=== PATIENT | male | born 1960 | race Caucasian/White ===

== ENCOUNTER 2016-08-23 23:50 | Inpatient (IN) | payer OTHER ==
--- NOTE | ~2016-08-23 | OP ---
Record Of Operation [facility] [address] [place]. [address] NAME: NARA POLANCO : 60 STATUS : ADM Stephen PAT#: [id number] AGE: 56 ADM/REG DATE : 08/23/16 MR#: [id number] REPORT SERV DATE: 08/24/16 DICTATED BY: ROLAN DUENAS DATE: 08/24/16 REPORT STATUS : Draft TRANSCRIBED BY: MODL DATE: 08/24/16 DATE OF PROCEDURE: 08/24/2016 PROCEDURE: EGD and control of bleeding. INDICATION: History of melena. SEDATION: Diprivan. FINDINGS: Olympus video endoscope was passed into the esophagus, which was normal. There are no varices. There was a small hiatal hernia in the gastric antrum. There were linear ulcerations one with oozing bright red blood. They were in the greater curvature in the mid antrum. Pylorus and duodenum were normal. The area was injected with epinephrine, total 4 mL. IMPRESSION: Linear ulcers on the greater curve of the stomach in the body, in the gastric antrum towards the body with endoscopic control. MG/MAN Rolan Duenas M.D. / [id number] CC: Jennifer Draper M.D.
--- NOTE | ~2016-08-23 | IDS ---
Interim Discharge Summary [facility] [address] [address] NAME: NARA RAYMUNDO : 60 STATUS : ADM Stephen PAT#: [id number] AGE: 56 ADM/REG DATE : 08/23/16 MR#: [id number] REPORT SERV DATE: 08/27/16 DICTATED BY: ROBIN SINGLETON DATE: 08/27/16 REPORT STATUS : Draft TRANSCRIBED BY: MODL DATE: 08/27/16 ADMISSION DATE: 08/23/2016 DISCHARGE DATE: DIAGNOSES: On this patient so far is, 1. Ongoing severe and acute lower gastrointestinal bleed-the patient has received 4 units of PRBC transfusion so far, and his hemoglobin and hematocrit continues to stay in the 6s and 7s range. The patient had a colonoscopy that is showing blood in the entire colon. 2. History of severe diverticulosis. 3. History of partial colon resection for diverticulitis/diverticulosis by Dr. Downs in 2013. BRIEF HOSPITAL COURSE: Mr. Raymundo is a very pleasant 56-year-old male, who was admitted with the diagnosis as outlined in history and physical exam dictated by Dr. Tran. Essentially, this is a patient who has had sigmoid colectomy by Dr. Downs for diverticulitis and this was in 2013 and he came in because of acute onset of bloody stools. He also had cough and subjective chills and fevers and he was diagnosed with influenza B infection. However, the patient is not infectious right now as his fever has resolved, cough has resolved, and he has received Tamiflu for this. When he came as his stool occult blood was positive and his H and H dropped, GI was consulted. The patient was given symptomatic and supportive care and transfused with blood transfusion. Dr. Rowe saw the patient and performed an endoscopy on him. The patient underwent an upper GI endoscopy on 08/24/2016 and the upper GI endoscopy showed normal esophagus, nonobstructing gastric ulcers, marginally oozing blood probably secondary to recent ibuprofen use that the patient had overused when he had the flu and fever. There was no evidence of perforation and this was injected with epinephrine. Normal duodenum was found on EGD. After this, the patient was transferred to [address] [place] [address] after being stabilized. He was doing well for 24 hours, but within that time he developed GI bleeding again. At this time, it was dark red blood which was giancarlo blood per rectum again. The patient also became dizzy and orthostatic. Hence his discharge was held. Dr. Rowe was reconsulted. The patient underwent a colonoscopy that showed blood in the entire colon. With the given history of diverticulitis/diverticulosis, we are suspecting acute and severe diverticular bleed again. Now, the patient has gone for special procedures in interventional Radiology by Dr. Barrera to locate the source of bleeding and stop if possible in Interventional Radiology by embolization, but if this does not work Dr. Downs has been consulted too. Dr. Downs feels that it is appropriate to transfer the patient to IMCU/MICU based on bed availability right now. Hence, we are transferring this patient to MICU or CCU as there are no IMCU beds for now. The patient will need to be watched closely despite several units of blood transfusion. His hemoglobin and hematocrit are staying low and he is continuing to have colonic bleed. Currently, he has been ordered 2 units of blood and his most recent H and H that I have is hemoglobin of 6.1 and hematocrit of 18.1. I have this patient with H and H every 8 hours and this could be changed to every [address] Rowe continues to follow this patient and so is Dr. Downs the surgeon. Please call me if you have any questions. I submit this as my interim discharge summary. Interim Discharge Summary [address] [address] NAME: NARA RAYMUNDO : 60 STATUS : ADM Stephen PAT#: [id number] AGE: 56 ADM/REG DATE : 08/23/16 MR#: [id number] REPORT SERV DATE: 08/27/16 DICTATED BY: ROBIN SINGLETON DATE: 08/27/16 REPORT STATUS : Draft TRANSCRIBED BY: MODFlako DATE: 08/27/16 STANTON/MAN Robin Singleton M.D. / [id number] CC: Robin Singleton M.D.
--- NOTE | ~2016-08-23 | EGD ---
EGD REPORT [facility] [address] [address] NAME: NARA RAYMUNDO : 60 STATUS : ADM Stephen PAT#: [id number] AGE: 56 ADM/REG DATE : 08/23/16 MR#: [id number] REPORT SERV DATE: 08/24/16 DICTATED BY: ROLAN DUENAS DATE: 08/24/16 REPORT STATUS : Draft TRANSCRIBED BY: [employer] DATE: 08/24/16 Endoscopy Center Patient Name: Nara Raymundo Date of : 1960 Attending MD: ROLAN DUENAS MD Procedure Date No Time: 08/24/2016 Procedure: Upper GI endoscopy Indications: Melena Referring MD: GUSTAVO KHAN Medicines: Propofol per Anesthesia Procedure: Pre-Anesthesia Assessment: - ASA Grade Assessment: III - A patient with severe systemic disease. After obtaining informed consent, the endoscope was passed under direct vision. Throughout the procedure, the patient's blood pressure, pulse, and oxygen saturations were monitored continuously. The GIF [id number] was introduced through the mouth, and advanced to the third part of duodenum. The upper GI endoscopy was accomplished without difficulty. The patient tolerated the procedure well. Findings: The examined esophagus was normal. Two non-obstructing oozing linear gastric ulcers of mild severity were found on the greater curvature of the gastric antrum. There is no evidence of perforation. Area was successfully injected with 4 mL of a 1:10,000 solution of epinephrine for hemostasis. The examined duodenum was normal. Impression: - Normal esophagus. - Non-obstructing gastric ulcers marginally oozing blood. NSAID induced etiology. There is no evidence of perforation. Injected. - Normal examined duodenum. Recommendation: - see dictated note for further details Procedure Code(s): --- Professional --- 61754, Esophagogastroduodenoscopy, flexible, transoral; with control of bleeding, any method Diagnosis Code(s): --- Professional --- K25.4, Chronic or unspecified gastric ulcer with hemorrhage T39.395S, Adverse effect of other nonsteroidal EGD REPORT [place] [address] [place]. [address] NAME: NARA RAYMUNDO : 60 STATUS : ADM Stephen PAT#: [id number] AGE: 56 ADM/REG DATE : 08/23/16 MR#: [id number] REPORT SERV DATE: 08/24/16 DICTATED BY: ROLAN DUENAS. DATE: 08/24/16 REPORT STATUS : Draft TRANSCRIBED BY: [employer] DATE: 08/24/16 anti-inflammatory drugs [NSAID], sequela K92.1, Melena CPT copyright 2013 [employer]. All rights reserved. The codes documented in this report are preliminary and upon overhead crane technician review may be revised to meet current compliance requirements. Rolan Duenas MD ROLAN DUENAS MD 08/24/2016 3:18 PM This report has been signed electronically. Number of Addenda: 0 Note Initiated On: 08/24/2016 1:32 PM Scope Withdrawal Time 0 hours 0 minutes 0 seconds
--- NOTE | ~2016-08-23 | DS ---
Discharge Summary [facility] [address] [facility] [place]. [address] NAME: NARA POLANCO : 60 STATUS : DIS IN PAT#: [id number] AGE: 56 ADM/REG DATE : 08/23/16 MR#: [id number] REPORT SERV DATE: 08/31/16 DICTATED BY: ROBIN SINGLETON DATE: 08/31/16 REPORT STATUS : Draft TRANSCRIBED BY: MODL DATE: 08/31/16 ADMISSION DATE: 08/23/2016 DISCHARGE DATE: 08/31/2016 CONDITION ON DISCHARGE: Stable. DISPOSITION: Discharged to home. DIAGNOSES ON DISCHARGE: 1. Acute gastrointestinal bleed, both upper gastrointestinal bleed and lower gastrointestinal bleed but lower gastrointestinal bleed was more significant. The upper gastrointestinal bleed stopped after the patient had an upper endoscopy, and the patient was given an injection of the ulcer that was found in the duodenal area. 2. The patient however developed severe bleeding in the colon from diverticulosis. The patient underwent colonoscopy, and colonoscopy showed blood in the entire colon. After that, the patient had to undergo an angiography two times before the bleeding site could be located and then finally the bleeding stopped after the patient got a coil put in one of the blood vessels, which was a branch of the inferior mesenteric artery. Hence, after the coil was put in the feeding vessel, his bleeding finally stopped. 3. History of severe diverticulosis. 4. History of partial colon resection for diverticulitis/diverticulosis [address] Downs. At this time, consults obtained include consult by Dr. Downs who was waiting to perform surgery if his bleeding did not stop, but luckily it stopped after the patient underwent angiography. CONSULT: GI consult. BRIEF HOSPITAL COURSE: For interim discharge summary, please refer my discharge summary dictated on 08/27/2016. The patient was transferred back from the ICU after he was watched for a day on 08/29/2016m and we watched him until today 08/31/2016 to make sure that he had no more episodes of blood in stools, and he did not. He has had several bowel movements like two to three bowel movements after that with no blood in the stool anymore. Hence, he is being discharged home once his hemoglobin and hematocrit has stabilized. LABORATORY DATA: I have the following labs on this patient upon discharge. Most recent CBC shows a WBC count of 7, hemoglobin 8.9, hematocrit 27.1, and platelet count of 149. His electrolyte profile show normal electrolytes and normal BUN and creatinine. DISCHARGE MEDICATION: The patient is being sent home with the following medications and these include MiraLAX one powder packet once a day as directed, Protonix 40 mg p.o. b.i.d., sucralfate or Carafate 1 g p.o. b.i.d., and ferrous sulfate 300 mg p.o. b.i.d. The patient is advised to follow up with his GI within the next three to four weeks and his primary care physician within the next one to two weeks. I have spent about 35 minutes in coordinating discharge care of this patient including face- Discharge Summary [address] [address] NAME: NARA POLANCO : 60 STATUS : DIS IN PAT#: [id number] AGE: 56 ADM/REG DATE : 08/23/16 MR#: [id number] REPORT SERV DATE: 08/31/16 DICTATED BY: ROBIN SINGLETON DATE: 08/31/16 REPORT STATUS : Draft TRANSCRIBED BY: MAN DATE: 08/31/16 to-face encounter. STANTON/MAN Robin Singleton M.D. / [id number] CC: Jennifer Andino M.D.
--- NOTE | ~2016-08-23 | CN ---
Consultation Report [facility] [address] [place]. [address] NAME: NARA POLANCO : 60 STATUS : ADM Stephen PAT#: [id number] AGE: 56 ADM/REG DATE : 08/23/16 MR#: [id number] REPORT SERV DATE: 08/24/16 DICTATED BY: ROLAN DUENAS DATE: 08/24/16 REPORT STATUS : Draft TRANSCRIBED BY: MODL DATE: 08/24/16 DATE OF CONSULTATION: 08/24/2016 HISTORY OF PRESENT ILLNESS: This patient had influenza B. He began taking ibuprofen a few days ago. He began having melenic stools, felt weak. Hemoglobin was 11.8, it has fallen to 9.7, he has had no melena here in the hospital. He denied any nausea or vomiting. He was given hydration. PAST MEDICAL HISTORY: History of diverticulitis, cholelithiasis, morbid obesity, sigmoid colectomy. MEDICATIONS: Carvedilol. PHYSICAL EXAMINATION: GENERAL: Morbidly obese. VITAL SIGNS: Pulse 100, blood pressure 130/80, seen in GI lab. CHEST: Clear. CARDIAC: Normal. ABDOMEN: Soft, nontender. IMPRESSION: Upper gastrointestinal bleed, possibly. PLAN: EGD. MG/MODL Rolan Duenas M.D. / [id number] CC: Jennifer Draper M.D.
--- NOTE | ~2016-08-23 | EGD ---
EGD REPORT [facility] [address] [address] NAME: NARA RAYMUNDO : 60 STATUS : ADM Stephen PAT#: [id number] AGE: 56 ADM/REG DATE : 08/23/16 MR#: [id number] REPORT SERV DATE: 08/27/16 DICTATED BY: ROLAN DUENAS DATE: 08/27/16 REPORT STATUS : Draft [facility]ANS[facility]: [facility] DATE: 08/27/16 Endoscopy Center Patient Name: Nara Raymunod Date of : 1960 Attending MD: ROLAN DUENAS MD Procedure Date No Time: 08/27/2016 Procedure: Colonoscopy Indications: Hematochezia Medicines: Propofol per Anesthesia Complications: No immediate complications. Procedure: Pre-Anesthesia Assessment: - ASA Grade Assessment: III - A patient with severe systemic disease. After I obtained informed consent, the scope was passed under direct vision. Throughout the procedure, the patient's blood pressure, pulse, and oxygen saturations were monitored continuously. The CF [id number] was introduced through the anus and advanced to 10 cm into the ileum. The colonoscopy was performed without difficulty. The patient tolerated the procedure well. The quality of the bowel preparation was adequate. Findings: There is no endoscopic evidence of bleeding in the terminal ileum. There was evidence of a prior end-to-side colo-colonic anastomosis in the sigmoid colon. This was patent. This was characterized by healthy appearing mucosa. Multiple medium-mouthed diverticula were found in the entire colon. Red blood was found in the entire colon. Blood throughout entire colon with most of it just above anastamoses in sigmoid. could not totally clear with irrigation Impression: - Patent end-to-side colo-colonic anastomosis. - Diverticulosis in the entire examined colon. - Blood in the entire examined colon. Recommendation: - Return patient to [facility] for ongoing care. Procedure Code(s): --- Professional --- 09906, Colonoscopy, flexible, proximal to splenic flexure; diagnostic, with or without collection of specimen(s) by brushing or washing, with or without colon decompression (separate procedure) Diagnosis Code(s): --- Professional --- EGD REPORT [facility] [address] [address] NAME: NARA RAYMUNDO : 60 STATUS : ADM Stephen PAT#: [id number] AGE: 56 ADM/REG DATE : 08/23/16 MR#: [id number] REPORT SERV DATE: 08/27/16 DICTATED BY: ROLAN DUENAS. DATE: 08/27/16 REPORT STATUS : Draft TRANSCRIBED BY: [employer] DATE: 08/27/16 Z98.0, Intestinal bypass and anastomosis status K57.30, Diverticulosis of large intestine without perforation or abscess without bleeding K92.2, Gastrointestinal hemorrhage, unspecified K92.1, Melena CPT copyright 2013 [employer] [place] [employer]. All rights reserved. The codes documented in this report are preliminary and upon juice mixer review may be revised to meet current compliance requirements. Attending Participation: I personally performed the entire procedure. Rolan Duenas MD ROLAN DUENAS MD 08/27/2016 7:42 AM This report has been signed electronically. Number of Addenda: 0 Note Initiated On: 08/27/2016 7:15 AM Scope Withdrawal Time 0 hours 14 minutes 7 seconds [address] [address]
--- NOTE | ~2016-08-23 | HP ---
History And Physical [place] [address] [facility] [place]. [address] NAME: NARA RAYMUNDO : 60 STATUS : ADM Stephen PAT#: [id number] AGE: 56 ADM/REG DATE : 08/23/16 MR#: [id number] REPORT SERV DATE: 08/24/16 DICTATED BY: AMISHA LAWLER DATE: 08/24/16 REPORT STATUS : Draft TRANSCRIBED BY: MODL DATE: 08/24/16 DATE OF ADMISSION: 08/23/2016 POINT OF ENTRY: [facility] Emergency Department. PRIMARY CORRUGATOR HELPER: Rolan Rowe M.D. CHIEF COMPLAINT: Bloody stools. HISTORY OF PRESENT ILLNESS: Mr. Raymundo is a 56-year-old gentleman with a history of hypertension as well as a prior history of diverticulitis requiring sigmoid colectomy, who presents to the emergency department today with acute onset of bloody stools. The patient states that beginning on he started to develop a cough as well as some subjective fevers and chills. He was seen at an Urgent Care Center today and diagnosed with influenza B infection. He was given a dose of intramuscular steroids and discharged to home. The patient states that he was not discharged on Tamiflu as his symptoms have been going on for 3+ days now. Upon arrival home he started to feel nauseated as if he is going to have diarrhea. He went to use the restroom and had a large volume bloody bowel movement and when asked to describe it was black as well as tarry consistent with melena. The patient continued to have additional bloody bowel movements at this time becoming more hematochezia in nature with appearance of some dark and bright red blood intermixed with stool. The patient started to feel weak as well as a little dizzy and presented to the emergency department. Initial evaluation in the emergency department notable for a blood pressure that was 108/57, heart rate of 121 this improved with administration of 1 L of normal saline. His occult stool was positive. His hemoglobin is 11.8. Lactic acid was mildly elevated at 2.5. CT scan of the abdomen and pelvis was unremarkable. He was subsequently admitted to the Hospitalist Service for further evaluation and management. Comprehensive review of systems otherwise negative, unless listed in history of present illness. The patient denies any aspirin or blood thinners. Denies any recent alcohol intake. Does have intermittent history of gastroesophageal reflux disease, but denies anything recent. He had been taking some ibuprofen for the past three days for his flu-like symptoms, he estimates about 400 mg three times daily for the past two to three days. The patient follows with Dr. Rowe, but has not seen him since 2009. He has not had any upper or lower endoscopy since then either. PREVIOUS MEDICAL HISTORY: 1. Hypertension. 2. History of diverticulitis, status post sigmoid colectomy. 3. Symptomatic cholelithiasis status post cholecystectomy. History And Physical [address] [address] NAME: NARA RAYMUNDO : 60 STATUS : ADM Stephen PAT#: [id number] AGE: 56 ADM/REG DATE : 08/23/16 MR#: [id number] REPORT SERV DATE: 08/24/16 DICTATED BY: AMISHA LAWLER DATE: 08/24/16 REPORT STATUS : Draft TRANSCRIBED BY: MAN DATE: 08/24/16 4. History of small-bowel obstruction. SURGICAL HISTORY: 1. Cholecystectomy. 2. Periumbilical hernia repair. 3. Sigmoid colectomy. ALLERGIES: TO FLAGYL. HOME MEDICATIONS: 1. Carvedilol 6.25 mg b.i.d. 2. Losartan/hydrochlorothiazide 100/12.5 mg one tablet daily. 3. Aldactone 25 mg daily. SOCIAL HISTORY: He denies any tobacco or illicits. Occasional alcohol intake. He works at the [employer] for [employer]. FAMILY MEDICAL HISTORY: Mother with hypertension and diabetes. Father also with hypertension and diabetes. He has some grandparents with history of coronary artery disease. LABS AND IMAGIN. White count is 9.2, hemoglobin is 11.8, hematocrit is 35.1, and platelet count is 234. INR is 1.2. 2. Sodium is 140, potassium is 4.6, chloride 108, carbon dioxide 23, BUN 36, creatinine 1.03, glucose is 240, calcium is 8.0, protein is 6.2, albumin is 2.9, bilirubin is 0.2, ALT is 38, AST 22, alkaline phosphatase is 99. 3. Lactic acid 2.5. 4. CT of the abdomen and pelvis shows no acute findings. PHYSICAL EXAMINATION: VITAL SIGNS: Temperature is 98.9 degrees Fahrenheit, pulse initially was 121, respirations 20, saturating 95% on room air, and blood pressure is 108/57. On recheck, blood pressure is now 122/55, heart rate of 91. GENERAL: The patient is awake and alert, in no acute distress. Resting comfortably. He is a well-developed, well-nourished, morbidly obese appearing male. HEENT: Atraumatic and normocephalic. Moist mucous membranes. Pupils equal, round, reactive to light and accommodation. Extraocular eye movements are intact. No scleral icterus. NECK: No jugular venous distention. No carotid bruits. CARDIAC: Regular rate and rhythm. No murmurs, rubs, or gallops. Normal S1, S2. LUNGS: Clear to auscultation bilaterally. No wheezes, rhonchi, or crackles. ABDOMEN: Obese soft, nontender, and nondistended. Good bowel sounds. No rebound, guarding, or rigidity. EXTREMITIES: Warm and perfused. No cyanosis, clubbing, or edema. SKIN: Warm and dry. PSYCH: Affect appropriate. NEURO: Alert and oriented x3. Cranial nerves 2 through 12 grossly intact. Speech is History And Physical [address] [address] NAME: NARA RAYMUNDO : 60 STATUS : ADM Stephen PAT#: [id number] AGE: 56 ADM/REG DATE : 08/23/16 MR#: [id number] REPORT SERV DATE: 08/24/16 DICTATED BY: AMISHA LAWLER DATE: 08/24/16 REPORT STATUS : Draft TRANSCRIBED BY: MODFlako DATE: 08/24/16 normal. Gait is not assessed. ASSESSMENT AND PLAN: Mr. Raymundo is a 56-year-old gentleman with a recent diagnosis of influenza B, who had been taking some ibuprofen for his symptoms and now presents to the emergency department with a one-day history of gastrointestinal bleeding. PROBLEM LIST: 1. GI bleed. 2. Acute blood loss anemia. 3. Elevated lactic acid level. 4. Influenza B positivity. 5. Shortness of breath. 6. Borderline low blood pressures. 7. Hyperglycemia. PLAN: 1. GI bleed. The patient describes both melena as well as hematochezia, so source is likely upper, and the patient does have a history of diverticulosis and diverticulitis. The patient currently is hemodynamically stable. We will check q.6 hours hemoglobin and hematocrits as well as consult Dr. Rowe for assistance in the morning. Make the patient nothing by mouth in the event he may need upper endoscopy evaluation. He has received 80 mg of IV Protonix here in the emergency department, we will continue a Protonix drip. 2. Acute blood loss anemia. Continue q.6 hours hemoglobin and hematocrit checks. Transfuse if hemoglobin less than 7. 3. Influenza B positivity. We will place the patient on some Tamiflu for symptomatic relief of his recent influenza B infection. 4. Shortness of breath. Checking a chest x-ray given history shortness of breath and cough as well as influenza B infection. 5. Hyperglycemia, this is likely steroid induced, but we will check hemoglobin A1c. 6. Borderline low blood pressure. The patient did have some borderline low blood pressures in the emergency department. These have since improved with administration of IV fluids. We will hold the patient's Coreg and we will provide holding parameters, remainder of his antihypertensives, as well as continue IV fluid hydration. 7. Elevated lactic acid level. Unclear etiology at this time. This patient is afebrile. His white count is normal. The patient does have influenza B infection as well as some recent blood loss and borderline low blood pressures. He is receiving a second liter here in the ER and we will recheck a lactic acid level upon completion. 8. DVT prophylaxis. TEDs and SCDs given bleeding. CODE STATUS: The patient wished to be full code. SULEIMAN/MAN isha Valentin History And Physical [address] [address] NAME: NARA RAYMUNDO : 60 STATUS : ADM Stephen PAT#: [id number] AGE: 56 ADM/REG DATE : 08/23/16 MR#: [id number] REPORT SERV DATE: 08/24/16 DICTATED BY: AMISHA LAWLER DATE: 08/24/16 REPORT STATUS : Draft TRANSCRIBED BY: MODL DATE: 08/24/16 MD Chelsea / [id number] CC: Jennifer Florence M.D.
--- NOTE | ~2016-08-23 | CN ---
Consultation Report [place] [id number] [facility] [place]. [address] NAME: NARA POLANCO : 60 STATUS : ADM Stephen PAT#: [id number] AGE: 56 ADM/REG DATE : 08/23/16 MR#: [id number] REPORT SERV DATE: 08/27/16 DICTATED BY: ESME DONAHUE III DATE: 08/27/16 REPORT STATUS : Draft TRANSCRIBED BY: MODL DATE: 08/27/16 CONSULT DATE OF CONSULTATION: 08/27/2016 REASON FOR CONSULT: 1. GI bleeding. 2. Recommendation regarding surgical management. HISTORY OF PRESENT ILLNESS: I am asked to see this 56-year-old male urgently today for the above reasons. The patient was admitted to the hospital on 08/23/2016 with GI bleeding. The bleeding initially was felt to be an upper GI bleed but a subsequent workup reveals evidence for probable bleeding from the left colon. The patient apparently has required approximately 4 units of blood in transfusion. The patient describes intermittent episodes of dark blood per rectum. He has had no nausea or vomiting. He has had no hematemesis. He has not been hemodynamically unstable. Since admission, a colonoscopy was performed which was not diagnostic of the exact site of bleeding. There was no bleeding noted in the terminal ileum. There were noted to be multiple diverticula in the entire colon. Blood was found in the entire colon with no exact site of bleeding seen. Most of the bleeding was noted to be above the anastomosis in the distal left colon where a previous sigmoid colectomy had been performed. Tagged red blood cell scan shows bleeding from what appears to be the distal left colon. PAST MEDICAL HISTORY: 1. History of diverticular disease, with previous history of sigmoid diverticulitis in the past for acute sigmoid diverticulitis. 2. Hypertension. 3. History of sigmoid colectomy. 4. History of laparoscopic cholecystectomy. ALLERGIES: FLAGYL. MEDICATIONS AT HOME: Include carvedilol, losartan, and Aldactone. SOCIAL HISTORY: The patient has no history of tobacco use. He has occasional history of alcohol use. FAMILY HISTORY: Positive for diabetes and heart disease. PHYSICAL EXAMINATION: OBJECTIVE PHYSICAL EXAM: GENERAL: This is a pleasant, somewhat obese male, in no acute Consultation Report [place] [id number] [facility] [place]. [address] NAME: NARA POLANCO : 60 STATUS : ADM Stephen PAT#: [id number] AGE: 56 ADM/REG DATE : 08/23/16 MR#: [id number] REPORT SERV DATE: 08/27/16 DICTATED BY: ESME DONAHUE III DATE: 08/27/16 REPORT STATUS : Draft TRANSCRIBED BY: MAN DATE: 08/27/16 distress. He is alert and oriented x3. He denies any abdominal pain. VITAL SIGNS: Blood pressure 135/91, temperature 98.6, and pulse is 100. HEENT: Unremarkable. NEUROLOGIC: Cranial nerves 2 through 12 are normal. LUNGS: Clear. CARDIAC: Normal. ABDOMEN: Soft and nontender. EXTREMITIES: Unremarkable. LABORATORY DATA: Colonoscopy is as above. Tagged RBC scan which I have reviewed performed yesterday shows active site of bleeding from what appears to be the distal left colon. Diverticula noted in the remaining sigmoid colon and descending colon. Arteriogram performed this morning per Dr. Barrera which I have reviewed with him showed no definite site of bleeding. The patient's hematocrit is 18. It is decreased from 25.8 yesterday. The patient apparently has received about 4 units of blood. The patient's PT and PTT and INR are normal. Electrolytes are normal. ASSESSMENT: 1. A 56-year-old male with lower GI bleeding. The most likely source appears to the left colon, most likely diverticular in origin. 2. Hypertension. 3. Obesity. PLAN: The patient will be transferred to the intensive care unit. The patient had a mesenteric arteriogram this morning and the femoral artery sheath was left in place. I have talked with Dr. Barrera who has suggested repeat mesenteric arteriogram with attempts at embolization. This will be performed immediately per Dr. Barrera. If this is not successful and if the bleeding continues, then an emergent resection involving the left colon will be required. I will request serial hematocrits and close monitoring in the intensive care unit. This plan has been explained to the patient and his family. Their questions have been answered. They understand and agree to this as planned. We will follow the patient with you. NICHELLE/MAN Esme Donahue III, M.D. / [id number] CC: Maribell Hansen M.D.
[~2016-08-23 23:50] MED LIST: HYZAAR1 TAB PO; NO MEDICATIONS; NORV10 PO; PERCOCET1 TA2 PO; PT DENIES HOME MEDS; SPIRO25 PO
[2016-08-24 00:23] LABS: ER CBC TAT 0 Hrs 09 Mins; HEMOGLOBIN 11.8 g/dL (13.6-17.8); MEAN CORPUS HGB CONC 33.6 g/dL (32.0-36.0); MEAN CORPUSCULAR HEMOGLOB 31.2 pg (26.0-34.0); MEAN CORPUSCULAR VOLUME 92.9 fL (80-100); MEAN PLATELET VOLUME 9.4 fL (9.2-13.0); PLATELET COUNT 234 10/3/uL (150-400); RBC DISTRIBUTION WIDTH 13.2 % (12.0-16.0); RED CELL COUNT 3.78 10/6/uL (4.7-6.1); WHITE BLOOD CELLS 9.2 10/3/uL (4.5-10.5)
[2016-08-24 00:24] LABS: HEMATOCRIT 35.1 % (40.0-51.0); MANUAL DIFF YES %
[2016-08-24 00:35] LABS: CHLORIDE, SERUM 108 MMOL/L (96-112); CO2 (CARBON DIOXIDE) 23 MMOL/L (24-34); CREATININE 1.03 MG/DL (0.70-1.30); GFR AFRICAN AMERICAN 94 ML/MIN (>=60); GFR NON AFRICAN AMERICAN 81 ML/MIN (>=60); INTERNATIONAL NORMAL RATI 1.2 UNITS (-); PARTIAL THROMBO TIME 31.9 SEC (22.5-37.2); POTASSIUM, SERUM 4.6 MMOL/L (3.5-5.3); PROTIME (NOT ORD) 14.8 SEC (12.0-14.5); SGOT(AST) 22 U/L (5-40); SGPT(ALT) 38 U/L (5-65); SODIUM, SERUM 140 MMOL/L (135-148); TOTAL BILIRUBIN 0.2 MG/DL (0-1.2); TOTAL PROTEIN 6.2 G/DL (6.0-8.5)
[2016-08-24 00:37] LABS: A/G RATIO 0.9 (0.7-1.9); ALBUMIN 2.9 G/DL (3.5-5.0); ALKALINE PHOSPHATASE 99 U/L (45-117); BUN (BLOOD UREA NITROGEN) 36 MG/DL (6-23); GLOBULIN 3.3 G/DL (2.5-4.1); GLUCOSE, SERUM 240 MG/DL (60-99)
[2016-08-24 00:48] LABS: BAND NEUTROPHILS 7 %; ER DIFF TAT 0 Hrs 34 Mins; LYMPHOCYTES 2 %; LYMPHOCYTES ABSOLUTE (CALC) 0.18 10/3/uL (0.67-4.30); NEUTROPHILS ABSOLUTE (CALC) 9.02 10/3/uL (2.02-8.40); RBC MORPHOLOGY NORM (NORMAL); SEGMENTED NEUTROPHIL (0) 91 %; TOTAL NUCLEATED CELLS 100
[2016-08-24] MEDS ORDERED: COREG6 PO (01:58)
[2016-08-24 04:34] LABS: BASOPHILS 0 %; EOSINOPHILS 0 %; HEMATOCRIT 28.9 % (40.0-51.0); HEMOGLOBIN 9.7 g/dL (13.6-17.8); IMMATURE GRANULOCYTES 0.2 %; IMMATURE GRANULOCYTES ABSOLUTE 0.02 10/3/uL (0.0-0.11); LYMPHOCYTES 9.4 %; LYMPHOCYTES ABSOLUTE 0.78 10/3/uL (0.67-4.30); MANUAL DIFF NO %; MEAN CORPUS HGB CONC 33.6 g/dL (32.0-36.0); MEAN CORPUSCULAR HEMOGLOB 30.8 pg (26.0-34.0); MEAN CORPUSCULAR VOLUME 91.7 fL (80-100); MEAN PLATELET VOLUME 9.5 fL (9.2-13.0); MONOCYTES 6.1 %; MONOCYTES ABSOLUTE 0.51 10/3/uL (0.21-1.20); NEUTROPHILS 84.3 %; NEUTROPHILS ABSOLUTE 7.01 10/3/uL (2.02-8.40); PLATELET COUNT 197 10/3/uL (150-400); RBC DISTRIBUTION WIDTH 13.5 % (12.0-16.0); RED CELL COUNT 3.15 10/6/uL (4.7-6.1); WHITE BLOOD CELLS 8.3 10/3/uL (4.5-10.5)
[2016-08-24 19:39] LABS: HEMATOCRIT 29.8 % (40.0-51.0); HEMOGLOBIN 9.9 g/dL (13.6-17.8); MEAN CORPUS HGB CONC 33.2 g/dL (32.0-36.0); MEAN CORPUSCULAR HEMOGLOB 31.2 pg (26.0-34.0); MEAN PLATELET VOLUME 9.4 fL (9.2-13.0); PLATELET COUNT 195 10/3/uL (150-400); RBC DISTRIBUTION WIDTH 13.5 % (12.0-16.0); RED CELL COUNT 3.17 10/6/uL (4.7-6.1); WHITE BLOOD CELLS 11.6 10/3/uL (4.5-10.5)
[2016-08-24 19:47] LABS: MANUAL DIFF YES %
[2016-08-24 20:12] LABS: BAND NEUTROPHILS 2 %; LYMPHOCYTES 1 %; LYMPHOCYTES ABSOLUTE (CALC) 0.12 10/3/uL (0.67-4.30); NEUTROPHILS ABSOLUTE (CALC) 11.48 10/3/uL (2.02-8.40); PLATELET ESTIMATE ADQ (ADEQUATE); SEGMENTED NEUTROPHIL (0) 97 %; TOTAL NUCLEATED CELLS 100
[2016-08-24 20:13] LABS: RBC MORPHOLOGY NORM (NORMAL)
[2016-08-25 06:01] LABS: BASOPHILS 0.1 %; BASOPHILS ABSOLUTE 0.01 10/3/uL (0.0-0.16); EOSINOPHILS 0.2 %; EOSINOPHILS ABSOLUTE 0.02 10/3/uL (0.0-0.53); HEMATOCRIT 24.6 % (40.0-51.0); IMMATURE GRANULOCYTES 0.6 %; IMMATURE GRANULOCYTES ABSOLUTE 0.05 10/3/uL (0.0-0.11); LYMPHOCYTES 17.9 %; LYMPHOCYTES ABSOLUTE 1.61 10/3/uL (0.67-4.30); MANUAL DIFF NO %; MEAN CORPUS HGB CONC 32.5 g/dL (32.0-36.0); MEAN CORPUSCULAR HEMOGLOB 30.7 pg (26.0-34.0); MEAN CORPUSCULAR VOLUME 94.3 fL (80-100); MONOCYTES 5.7 %; MONOCYTES ABSOLUTE 0.51 10/3/uL (0.21-1.20); NEUTROPHILS 75.5 %; NEUTROPHILS ABSOLUTE 6.81 10/3/uL (2.02-8.40); PLATELET COUNT 177 10/3/uL (150-400); RBC DISTRIBUTION WIDTH 13.8 % (12.0-16.0); RED CELL COUNT 2.61 10/6/uL (4.7-6.1)
[2016-08-25 06:18] LABS: BUN (BLOOD UREA NITROGEN) 26 MG/DL (6-23); CALCIUM, SERUM 7.7 MG/DL (8.5-10.4); CHLORIDE, SERUM 111 MMOL/L (96-112); CO2 (CARBON DIOXIDE) 23 MMOL/L (24-34); CREATININE 0.88 MG/DL (0.70-1.30); GFR AFRICAN AMERICAN 111 ML/MIN (>=60); GFR NON AFRICAN AMERICAN 96 ML/MIN (>=60); GLUCOSE, SERUM 133 MG/DL (60-99); POTASSIUM, SERUM 3.8 MMOL/L (3.5-5.3); SODIUM, SERUM 144 MMOL/L (135-148)
[2016-08-25 21:37] LABS: HEMATOCRIT 20.8 % (40.0-51.0)
[2016-08-25 21:40] LABS: HEMOGLOBIN 6.7 g/dL (13.6-17.8)
[2016-08-26 08:22] LABS: BASOPHILS 0.2 %; BASOPHILS ABSOLUTE 0.02 10/3/uL (0.0-0.16); EOSINOPHILS 0.5 %; EOSINOPHILS ABSOLUTE 0.05 10/3/uL (0.0-0.53); IMMATURE GRANULOCYTES 1.5 %; IMMATURE GRANULOCYTES ABSOLUTE 0.16 10/3/uL (0.0-0.11); LYMPHOCYTES 20.2 %; LYMPHOCYTES ABSOLUTE 2.09 10/3/uL (0.67-4.30); MEAN CORPUS HGB CONC 32.9 g/dL (32.0-36.0); MEAN CORPUSCULAR HEMOGLOB 30.1 pg (26.0-34.0); MEAN CORPUSCULAR VOLUME 91.5 fL (80-100); MEAN PLATELET VOLUME 9.2 fL (9.2-13.0); MONOCYTES 8.2 %; MONOCYTES ABSOLUTE 0.85 10/3/uL (0.21-1.20); NEUTROPHILS 69.4 %; NEUTROPHILS ABSOLUTE 7.18 10/3/uL (2.02-8.40); NUCLEATED RED BLOOD CELLS 0.7 /100WBC (0-0); PLATELET COUNT 179 10/3/uL (150-400); RBC DISTRIBUTION WIDTH 14.1 % (12.0-16.0); RED CELL COUNT 2.82 10/6/uL (4.7-6.1); WHITE BLOOD CELLS 10.4 10/3/uL (4.5-10.5)
[2016-08-26 08:23] LABS: HEMATOCRIT 25.8 % (40.0-51.0); HEMOGLOBIN 8.5 g/dL (13.6-17.8); MANUAL DIFF NO %
[2016-08-26 08:35] LABS: BUN (BLOOD UREA NITROGEN) 24 MG/DL (6-23); CALCIUM, SERUM 7.2 MG/DL (8.5-10.4); CHLORIDE, SERUM 110 MMOL/L (96-112); CO2 (CARBON DIOXIDE) 23 MMOL/L (24-34); CREATININE 0.79 MG/DL (0.70-1.30); GFR AFRICAN AMERICAN 116 ML/MIN (>=60); GFR NON AFRICAN AMERICAN 100 ML/MIN (>=60); GLUCOSE, SERUM 125 MG/DL (60-99); POTASSIUM, SERUM 3.9 MMOL/L (3.5-5.3); SODIUM, SERUM 142 MMOL/L (135-148)
[2016-08-26 16:09] LABS: HEMOGLOBIN 7.3 g/dL (13.6-17.8)
[2016-08-26 16:11] LABS: HEMATOCRIT 22.4 % (40.0-51.0)
[2016-08-27 00:45] LABS: HEMATOCRIT 21.6 % (40.0-51.0); HEMOGLOBIN 7.3 g/dL (13.6-17.8)
[2016-08-27 13:19] LABS: HEMATOCRIT 18.1 % (40.0-51.0); HEMOGLOBIN 6.1 g/dL (13.6-17.8)
[2016-08-27 18:54] LABS: MEAN CORPUS HGB CONC 32.4 g/dL (32.0-36.0); MEAN CORPUSCULAR HEMOGLOB 30.2 pg (26.0-34.0); MEAN CORPUSCULAR VOLUME 93.1 fL (80-100); MEAN PLATELET VOLUME 9.1 fL (9.2-13.0); PLATELET COUNT 139 10/3/uL (150-400); RBC DISTRIBUTION WIDTH 14.6 % (12.0-16.0); WHITE BLOOD CELLS 10.4 10/3/uL (4.5-10.5)
[2016-08-27 18:56] LABS: HEMOGLOBIN 5.7 g/dL (13.6-17.8); RED CELL COUNT 1.89 10/6/uL (4.7-6.1)
[2016-08-27 18:57] LABS: HEMATOCRIT 17.6 % (40.0-51.0); MANUAL DIFF YES %
[2016-08-27 19:09] LABS: INTERNATIONAL NORMAL RATI 1.3 UNITS (-); PARTIAL THROMBO TIME 28.5 SEC (22.5-37.2); PROTIME (NOT ORD) 15.7 SEC (12.0-14.5)
[2016-08-27 19:10] LABS: A/G RATIO 0.9 (0.7-1.9); ALBUMIN 2.2 G/DL (3.5-5.0); ALKALINE PHOSPHATASE 65 U/L (45-117); BUN (BLOOD UREA NITROGEN) 18 MG/DL (6-23); CALCIUM, SERUM 7.2 MG/DL (8.5-10.4); CHLORIDE, SERUM 111 MMOL/L (96-112); CO2 (CARBON DIOXIDE) 25 MMOL/L (24-34); CREATININE 0.68 MG/DL (0.70-1.30); GFR AFRICAN AMERICAN 124 ML/MIN (>=60); GFR NON AFRICAN AMERICAN 107 ML/MIN (>=60); GLOBULIN 2.4 G/DL (2.5-4.1); GLUCOSE, SERUM 143 MG/DL (60-99); POTASSIUM, SERUM 3.2 MMOL/L (3.5-5.3); SGOT(AST) 53 U/L (5-40); SGPT(ALT) 80 U/L (5-65); SODIUM, SERUM 146 MMOL/L (135-148); TOTAL BILIRUBIN 0.2 MG/DL (0-1.2); TOTAL PROTEIN 4.6 G/DL (6.0-8.5)
[2016-08-27 19:30] LABS: BAND NEUTROPHILS 5 %; IMMATURE GRANS ABSOLUTE (CALC) 0.21 10/3/uL (0.0-0.11); LYMPHOCYTES 5 %; LYMPHOCYTES ABSOLUTE (CALC) 0.52 10/3/uL (0.67-4.30); METAMYELOCYTES 2 %; MONOCYTES 1 %; NEUTROPHILS ABSOLUTE (CALC) 9.57 10/3/uL (2.02-8.40); SEGMENTED NEUTROPHIL (0) 87 %; TOTAL NUCLEATED CELLS 100
[2016-08-27 19:31] LABS: PLATELET ESTIMATE SLT INC (ADEQUATE); POLYCHROMASIA 1+ (2-5/OIF) (0-1/OIF)
[2016-08-28 05:29] LABS: HEMATOCRIT 23.2 % (40.0-51.0); HEMOGLOBIN 7.6 g/dL (13.6-17.8)
[2016-08-28 11:17] LABS: HEMATOCRIT 24.8 % (40.0-51.0); HEMOGLOBIN 8.2 g/dL (13.6-17.8)
[2016-08-28 15:30] LABS: HEMATOCRIT 23.2 % (40.0-51.0); HEMOGLOBIN 7.8 g/dL (13.6-17.8)
[2016-08-28 23:10] LABS: HEMOGLOBIN 9.3 g/dL (13.6-17.8)
[2016-08-28 23:18] LABS: HEMATOCRIT 27.5 % (40.0-51.0)
[2016-08-29 06:02] LABS: CALCIUM, SERUM 7.6 MG/DL (8.5-10.4); CHLORIDE, SERUM 109 MMOL/L (96-112); CO2 (CARBON DIOXIDE) 26 MMOL/L (24-34); CREATININE 0.77 MG/DL (0.70-1.30); GFR AFRICAN AMERICAN 118 ML/MIN (>=60); GFR NON AFRICAN AMERICAN 101 ML/MIN (>=60); PHOSPHORUS, SERUM 3.2 MG/DL (2.5-4.5); POTASSIUM, SERUM 3.4 MMOL/L (3.5-5.3); SODIUM, SERUM 145 MMOL/L (135-148)
[2016-08-29 06:03] LABS: BUN (BLOOD UREA NITROGEN) 14 MG/DL (6-23); GLUCOSE, SERUM 100 MG/DL (60-99)
[2016-08-29 06:40] LABS: HEMATOCRIT 29.2 % (40.0-51.0); HEMOGLOBIN 9.4 g/dL (13.6-17.8); MEAN CORPUS HGB CONC 32.2 g/dL (32.0-36.0); MEAN CORPUSCULAR HEMOGLOB 29.7 pg (26.0-34.0); MEAN CORPUSCULAR VOLUME 92.1 fL (80-100); MEAN PLATELET VOLUME 9.5 fL (9.2-13.0); NUCLEATED RED BLOOD CELLS 2.4 /100WBC (0-0); PLATELET COUNT 135 10/3/uL (150-400); RBC DISTRIBUTION WIDTH 15.2 % (12.0-16.0); WHITE BLOOD CELLS 10.8 10/3/uL (4.5-10.5)
[2016-08-29 06:43] LABS: MANUAL DIFF YES %; RED CELL COUNT 3.17 10/6/uL (4.7-6.1)
[2016-08-29 06:52] LABS: BAND NEUTROPHILS 8 %; IMMATURE GRANS ABSOLUTE (CALC) 0.32 10/3/uL (0.0-0.11); LYMPHOCYTES 15 %; LYMPHOCYTES ABSOLUTE (CALC) 1.62 10/3/uL (0.67-4.30); METAMYELOCYTES 3 %; MONOCYTES 4 %; MONOCYTES ABSOLUTE (CALC) 0.43 10/3/uL (0.21-1.20); NEUTROPHILS ABSOLUTE (CALC) 8.42 10/3/uL (2.02-8.40); SEGMENTED NEUTROPHIL (0) 70 %; TOTAL NUCLEATED CELLS 100
[2016-08-29 06:53] LABS: PLATELET ESTIMATE SLT DEC (ADEQUATE); RBC MORPHOLOGY NORM (NORMAL)
[2016-08-29 11:26] LABS: HEMATOCRIT 27.9 % (40.0-51.0); HEMOGLOBIN 9.1 g/dL (13.6-17.8)
[2016-08-30 08:26] LABS: BASOPHILS 0.1 %; BASOPHILS ABSOLUTE 0.01 10/3/uL (0.0-0.16); EOSINOPHILS 1.7 %; EOSINOPHILS ABSOLUTE 0.14 10/3/uL (0.0-0.53); HEMATOCRIT 27.8 % (40.0-51.0); HEMOGLOBIN 9.2 g/dL (13.6-17.8); IMMATURE GRANULOCYTES 4.7 %; LYMPHOCYTES 11.7 %; LYMPHOCYTES ABSOLUTE 0.99 10/3/uL (0.67-4.30); MANUAL DIFF NO %; MEAN CORPUS HGB CONC 33.1 g/dL (32.0-36.0); MEAN CORPUSCULAR HEMOGLOB 30.5 pg (26.0-34.0); MEAN CORPUSCULAR VOLUME 92.1 fL (80-100); MEAN PLATELET VOLUME 9.5 fL (9.2-13.0); MONOCYTES 4.2 %; MONOCYTES ABSOLUTE 0.35 10/3/uL (0.21-1.20); NEUTROPHILS 77.6 %; NEUTROPHILS ABSOLUTE 6.54 10/3/uL (2.02-8.40); NUCLEATED RED BLOOD CELLS 1.2 /100WBC (0-0); PLATELET COUNT 140 10/3/uL (150-400); RED CELL COUNT 3.02 10/6/uL (4.7-6.1); WHITE BLOOD CELLS 8.4 10/3/uL (4.5-10.5)
[2016-08-30 08:31] LABS: BUN (BLOOD UREA NITROGEN) 14 MG/DL (6-23); CALCIUM, SERUM 7.9 MG/DL (8.5-10.4); CHLORIDE, SERUM 107 MMOL/L (96-112); CO2 (CARBON DIOXIDE) 25 MMOL/L (24-34); GFR AFRICAN AMERICAN 116 ML/MIN (>=60); GFR NON AFRICAN AMERICAN 100 ML/MIN (>=60); POTASSIUM, SERUM 3.2 MMOL/L (3.5-5.3); SODIUM, SERUM 143 MMOL/L (135-148)
[2016-08-30 08:32] LABS: GLUCOSE, SERUM 158 MG/DL (60-99)
[2016-08-31 05:06] LABS: BASOPHILS 0.1 %; BASOPHILS ABSOLUTE 0.01 10/3/uL (0.0-0.16); EOSINOPHILS 2.6 %; EOSINOPHILS ABSOLUTE 0.18 10/3/uL (0.0-0.53); HEMATOCRIT 27.1 % (40.0-51.0); HEMOGLOBIN 8.9 g/dL (13.6-17.8); IMMATURE GRANULOCYTES 3.7 %; IMMATURE GRANULOCYTES ABSOLUTE 0.26 10/3/uL (0.0-0.11); LYMPHOCYTES ABSOLUTE 1.19 10/3/uL (0.67-4.30); MEAN CORPUS HGB CONC 32.8 g/dL (32.0-36.0); MEAN CORPUSCULAR HEMOGLOB 30.2 pg (26.0-34.0); MEAN CORPUSCULAR VOLUME 91.9 fL (80-100); MEAN PLATELET VOLUME 9.3 fL (9.2-13.0); MONOCYTES 5.3 %; MONOCYTES ABSOLUTE 0.37 10/3/uL (0.21-1.20); NEUTROPHILS 71.3 %; PLATELET COUNT 149 10/3/uL (150-400); RBC DISTRIBUTION WIDTH 15.2 % (12.0-16.0); RED CELL COUNT 2.95 10/6/uL (4.7-6.1)
[2016-08-31 05:11] LABS: MANUAL DIFF NO %
[2016-08-31 05:14] LABS: BUN (BLOOD UREA NITROGEN) 12 MG/DL (6-23); CALCIUM, SERUM 7.9 MG/DL (8.5-10.4); CHLORIDE, SERUM 107 MMOL/L (96-112); CO2 (CARBON DIOXIDE) 26 MMOL/L (24-34); CREATININE 0.65 MG/DL (0.70-1.30); GFR AFRICAN AMERICAN 126 ML/MIN (>=60); GFR NON AFRICAN AMERICAN 109 ML/MIN (>=60); POTASSIUM, SERUM 3.9 MMOL/L (3.5-5.3); SODIUM, SERUM 142 MMOL/L (135-148)
[2016-08-31 05:20] LABS: GLUCOSE, SERUM 114 MG/DL (60-99)
[2016-08-31] MEDS ORDERED: PROTONIX PO (14:45)
[2016-08-31] MEDS ORDERED: SUCR PO (14:45)
[2016-08-31] MEDS ORDERED: MIRALAX POWDER1 PKT PO (14:45)
[2016-08-31] MEDS ORDERED: FESO4 PO (14:46)
== END 2016-08-31 16:15 | disposition home or self-care (01) | DRG 357 ==
LOC: ER 23:50 → 1SO 23:59 → SSU1 08-27 09:51 → CCU 08-27 16:40 → 2SO 08-28 19:30
PROVIDERS: Hospitalist; Internal Medicine; Internal Medicine Gastroenterology; Internal Medicine Pulmonary Disease; Nurse Practitioner Acute Care
PROC: 0DJ08ZZ Inspection of Upper Intestinal Tract, Via Natural or Artificial Opening Endoscopic (ICD-10-PCS; 2016-08-24)
PROC: 3E0G8GC Introduction of Other Therapeutic Substance into Upper GI, Via Natural or Artificial Opening Endoscopic (ICD-10-PCS; principal; 2016-08-24 13:30)
PROC: 30233N1 Transfusion of Nonautologous Red Blood Cells into Peripheral Vein, Percutaneous Approach (ICD-10-PCS; 2016-08-25)
PROC: 04LB3DZ Occlusion of Inferior Mesenteric Artery with Intraluminal Device, Percutaneous Approach (ICD-10-PCS; 2016-08-27)
PROC: 0DJD8ZZ Inspection of Lower Intestinal Tract, Via Natural or Artificial Opening Endoscopic (ICD-10-PCS; 2016-08-27)
PROC: B4141ZZ Fluoroscopy of Superior Mesenteric Artery using Low Osmolar Contrast (ICD-10-PCS; 2016-08-27)
PROC: B4151ZZ Fluoroscopy of Inferior Mesenteric Artery using Low Osmolar Contrast (ICD-10-PCS; 2016-08-27)
DX: K57.31 Diverticulosis of large intestine without perforation or abscess with bleeding (principal); D62 Acute posthemorrhagic anemia; I95.9 Hypotension, unspecified; Z68.42 Body mass index [BMI] 45.0-49.9, adult; E27.3 Drug-induced adrenocortical insufficiency; K25.4 Chronic or unspecified gastric ulcer with hemorrhage; E66.01 Morbid (severe) obesity due to excess calories; K26.4 Chronic or unspecified duodenal ulcer with hemorrhage; I10 Essential (primary) hypertension; J11.1 Influenza due to unidentified influenza virus with other respiratory manifestations; K57.30 Diverticulosis of large intestine without perforation or abscess without bleeding; R73.9 Hyperglycemia, unspecified; R06.02 Shortness of breath; R00.0 Tachycardia, unspecified; E87.6 Hypokalemia; T39.395A Adverse effect of other nonsteroidal anti-inflammatory drugs [NSAID], initial encounter; G47.33 Obstructive sleep apnea (adult) (pediatric); T39.395S Adverse effect of other nonsteroidal anti-inflammatory drugs [NSAID], sequela; Z90.49 Acquired absence of other specified parts of digestive tract; Z98.890 Other specified postprocedural states; Z88.8 Allergy status to other drugs, medicaments and biological substances; Z82.49 Family history of ischemic heart disease and other diseases of the circulatory system; Z83.3 Family history of diabetes mellitus
CPT/HCPCS: 36245; 36246; 36415; 37244; 71010; 74176; 75726; 75774; 78278; 80048; 80053; 83036; 83605; 83735; 84100; 84132; 84484; 85014; 85018; 85025; 85610; 85730; 86677; 86850; 86900; 86901; 86920; 87641; 93005; 96374; 99152; 99153; 99285; A9270-GY; A9560; C1769; C1887; C1894; C9113; J1170; J2250; J2370; J2405; P9016; Q9967